=== PATIENT | female | born 1955 | race Caucasian/White ===

== ENCOUNTER 2017-03-26 08:00 | Inpatient (IN) | payer OTHER ==
[2017-03-11 13:16] VITALS: BMI 26.5
--- NOTE | 2017-03-26 07:49 | HP ---
Admitting History and Physical - Admission Chief Complaint: Right knee osteoarthritis x years History of Present Illness: 62 year old female presents in regard to her right knee. Longstanding history of right knee osteoarthritis. Patient complains of pain, limited ROM and difficulty ambulating. Patient has failed conservative treatment including PO medication, injections, activity modification and an exercise program. At this point patient would like to proceed with a right total knee arthroplasty. History Source: Patient - Past Medical History Pulmonary: Yes: Asthma ...: No Psych: Yes: Anxiety, Depression, Other (Insomnia) - Past Surgical History Additional Past Surgical History: See written history & physical - Smoking History Smoking history: Former smoker Have you smoked in the past 12 months: No If you are a former smoker, when did you quit?: - Alcohol/Substance Use Hx Alcohol Use: No Home Medications - Allergies Allergies/Adverse Reactions: Allergies Allergy/AdvReac Type Severity Reaction Status Date / Time acetaminophen [From Tylenol] Allergy Intermediate Itching Verified 03/11/17 13: 33 - Home Medications Home Medications: Ambulatory Orders Albuterol Sulfate [Proair Respiclick] 90 mcg IH DAILY PRN 03/11/17 Bupropion HCl [Wellbutrin Sr] 100 mg PO DAILY 03/11/17 Cholecalciferol (Vitamin D3) [Vitamin D3] 50,000 unit PO WEEKLY 03/11/17 Lorazepam [Ativan] 0.5 mg PO BID PRN 03/11/17 Paroxetine HCl [Paxil] 40 mg PO DAILY 03/11/17 Zolpidem Tartrate [Ambien] 10 mg PO HS 03/11/17 Review of Systems - Review of Systems Musculoskeletal: reports: Crepitus (Right knee), Decreased ROM (Right knee), Joint Pain (Right knee), Joint Swelling (Right knee) Physical Examination Constitutional: Yes: Well Nourished, No Distress Eyes: Yes: Conjunctiva Clear HENT: Yes: Atraumatic, Normocephalic Neck: Yes: Supple Cardiovascular: Yes: Regular Rate and Rhythm Respiratory: Yes: Regular Gastrointestinal: Yes: Soft ...Rectal Exam: Yes: Deferred Musculoskeletal: Yes: Joint Stiffness (Right knee), Joint Swelling (Right knee) Assessment/Plan 62 year old female presenting with right knee osteoarthritis. Patient is limited in ADLs and ambulation. Patient has failed conservative treatment. Proceed with a right total knee arthroplasty.
[2017-03-26] MEDS ORDERED: ROPIVACAINE HCL 0.5% 30ML VIAL ONE (09:46)
[2017-03-26] MEDS ORDERED: DEXAMETHASONE SOD PHOSPHATE/PF 10 MG/ML SDV ONE (09:46)
[2017-03-26] MEDS ORDERED: ROPIVACAINE 0.2% 400ML 400 ML ML NR ONE (10:00)
[2017-03-26] MEDS ORDERED: GABAPENTIN 300 MG CAPSULE (FP) ONE (10:07)
[2017-03-26] MEDS ORDERED: oxyCODONE HCL 10 MG SUSTAINED ACTING TABLET ONE (10:07)
[2017-03-26] MEDS ORDERED: CELECOXIB 200 MG CAPSULE ONE (10:08)
[2017-03-26] MEDS ORDERED: MIDAZOLAM HCL 2 MG/2 ML SINGLE DOSE VIAL ONE (10:48)
[2017-03-26] MEDS ORDERED: BUPIVACAINE HCL/PF 0.5% (5MG/ML) 10 ML VIAL ONE (11:19)
--- NOTE | 2017-03-26 11:29 | HP ---
Admitting History and Physical - Admission Chief Complaint: Right knee OA History Source: Patient, Medical Record Limitations to Obtaining History: No Limitations - Past Medical History Pulmonary: Yes: Asthma ...: No Psych: Yes: Anxiety, Depression, Other (Insomnia) - Past Surgical History Additional Past Surgical History: See written history & physical - Smoking History Smoking history: Former smoker Have you smoked in the past 12 months: No If you are a former smoker, when did you quit?: - Alcohol/Substance Use Hx Alcohol Use: No - Social History Usual Living Arrangement: Yes: With Spouse Home Medications - Allergies Allergies/Adverse Reactions: Allergies Allergy/AdvReac Type Severity Reaction Status Date / Time acetaminophen [From Tylenol] Allergy Intermediate Itching Verified 03/11/17 13: 33 - Home Medications Home Medications: Ambulatory Orders Albuterol Sulfate [Proair Respiclick] 90 mcg IH DAILY PRN 03/11/17 Bupropion HCl [Wellbutrin Sr] 100 mg PO DAILY 03/11/17 Cholecalciferol (Vitamin D3) [Vitamin D3] 50,000 unit PO WEEKLY 03/11/17 Lorazepam [Ativan] 0.5 mg PO BID PRN 03/11/17 Paroxetine HCl [Paxil] 40 mg PO DAILY 03/11/17 Zolpidem Tartrate [Ambien] 10 mg PO HS 03/11/17 Physical Examination Vital Signs: Vital Signs Temperature 97.8 F 03/26/17 09:51 Pulse Rate 85 03/26/17 09:51 Respiratory Rate 20 03/26/17 09:51 Blood Pressure 130/82 03/26/17 09:51 O2 Sat by Pulse Oximetry (%) Constitutional: Yes: Well Nourished, No Distress, Calm Eyes: Yes: WNL, Conjunctiva Clear, EOM Intact HENT: Yes: WNL, Atraumatic, Normocephalic Neck: Yes: WNL, Supple Cardiovascular: Yes: WNL, Regular Rate and Rhythm Respiratory: Yes: WNL, Regular Gastrointestinal: Yes: WNL, Soft ...Rectal Exam: Yes: Deferred Musculoskeletal: Yes: Joint Stiffness, Joint Swelling Extremities: Yes: WNL Edema: No Peripheral Pulses WNL: Yes Integumentary: Yes: WNL Neurological: Yes: WNL, Alert, Oriented ...Motor Strength: WNL Psychiatric: Yes: WNL, Alert, Oriented Labs: reviewed in chart Imaging - Results X-ray: Image Reviewed Problem List - Problems (1) Osteoarthritis of right knee Assessment/Plan: 62yo female with right knee OA for R TKA Code(s): M17.11 - UNILATERAL PRIMARY OSTEOARTHRITIS, RIGHT KNEE Qualifiers: Osteoarthritis type: primary Qualified Code(s): M17.11 - Unilateral primary osteoarthritis, right knee
[2017-03-26] MEDS ORDERED: ROPIVICAINE 0.2%/MORPH PF/KETOROLAC - 51ML DISP.SYRINGE IA ONE (11:52)
[2017-03-26] MEDS ORDERED: TRANEXAMIC ACID 1000 MG/10 ML VIAL IVPB ONE ×2 (12:12→13:44)
[2017-03-26] MEDS ORDERED: VANCOMYCIN 1,000 MG VIAL (RESTRICTED TO ID ONLY) IVPB ONE ×2 (12:12→13:44)
[2017-03-26] MEDS ORDERED: TRANEXAMIC ACID 1000 MG/10 ML VIAL ONE (13:42)
[2017-03-26] MEDS ORDERED: PROPOFOL 20 ML ONE (13:52)
--- NOTE | 2017-03-26 14:44 | OP ---
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
[2017-03-26] MEDS ORDERED: MAGNESIUM HYDROX 2400MG/30ML ORAL SUSPENSION 30 ML CUP PO PRN (14:47)
[2017-03-26] MEDS ORDERED: ONDANSETRON 4 MG/2 ML VIAL IVPB PRN (14:47)
[2017-03-26] MEDS ORDERED: MAG HYDROX/AL HYDROX/SIMETH 30 ML UNIT-DOSE CUP PO PRN (14:47)
[2017-03-26] MEDS ORDERED: oxyCODONE HCL 5 MG TABLET PO PRN (14:52)
[2017-03-26] MEDS ORDERED: PATIENT'S OWN MEDICATION (NON-FORMULARY) (Albuterol Sulfate [Proair Respiclick] 90 MCG) IH PRN (14:53)
[2017-03-26] MEDS ORDERED: PANTOPRAZOLE 40 MG TABLET (FP) PO ONE (14:59)
[2017-03-26] MEDS ORDERED: LACTATED RINGERS SOLUTION 1,000 ML IV SCH (15:00)
[2017-03-26] MEDS: ACETAMINOPHEN 1000 MG/100 ML VIAL (NON FORMULARY) IVPB ONE ×2 (15:00→19:54)
[2017-03-26] MEDS ORDERED: KETOROLAC TROMETHAMINE 30 MG/1 ML VIAL ONE (15:17)
[2017-03-26] MEDS ORDERED: traMADol HCL 50 MG TABLET ONE (15:17)
[2017-03-26] MEDS ORDERED: ACETAMINOPHEN INJECTION 100 ML IVPB ONE (15:18)
[2017-03-26] MEDS: traMADol HCL 50 MG TABLET PO SCH ×2 (15:25→21:56)
[2017-03-26] MEDS: KETOROLAC TROMETHAMINE 30 MG/1 ML VIAL IVPUSH SCH ×2 (15:30→21:51)
[2017-03-26] MEDS: oxyCODONE HCL 5 MG TABLET PO PRN (18:50)
[2017-03-26] MEDS: ACETAMINOPHEN 325 MG TABLET (FP) PO SCH ×2 (19:55→20:35)
[2017-03-26] MEDS: CEFAZOLIN 1 GM/D5W 50 ML IVPB SCH (20:35)
[2017-03-26] MEDS: oxyCODONE HCL 10 MG SUSTAINED ACTING TABLET PO SCH (21:55)
[2017-03-26] MEDS ORDERED: ZOLPIDEM TARTRATE 5 MG TABLET ONE (21:55)
[2017-03-26] MEDS: CELECOXIB 200 MG CAPSULE PO SCH (21:56)
[2017-03-26] MEDS: GABAPENTIN 300 MG CAPSULE (FP) PO SCH (21:56)
[2017-03-26] MEDS: SENNOSIDES/DOCUSATE COMBO (SENNA PLUS) TABLET (UD) PO SCH (21:56)
[2017-03-26] MEDS: ASCORBIC ACID 500 MG TABLET (FP) PO SCH (21:57)
[2017-03-27] MEDS: ACETAMINOPHEN 325 MG TABLET (FP) PO SCH ×4 (03:00→20:04)
[2017-03-27] MEDS: KETOROLAC TROMETHAMINE 30 MG/1 ML VIAL IVPUSH SCH ×2 (03:00→08:42)
[2017-03-27] MEDS: traMADol HCL 50 MG TABLET PO SCH ×4 (03:00→20:04)
[2017-03-27] MEDS: CEFAZOLIN 1 GM/D5W 50 ML IVPB SCH (04:00)
[2017-03-27] MEDS: oxyCODONE HCL 5 MG TABLET PO PRN ×2 (06:41→16:24)
[2017-03-27] MEDS: LORazepam 0.5 MG TABLET PO PRN ×2 (06:53→18:22)
[2017-03-27] MEDS: ASPIRIN 325 MG TABLET PO SCH (07:51)
[2017-03-27 08:39] LABS: MCH 29.7 pg (25.7-33.7); MCHC 32.3 g/dl (32.0-36.0); MEAN CELL VOLUME 92.1 fl (80-96); MEAN PLT VOLUME 9.2 fl (7.5-11.1); PLATELET COUNT 216 K/MM3 (134-434); RDW 14.6 % (11.6-15.6); WHITE BLOOD COUNT 10.8 K/mm3 (4.0-10.8)
[2017-03-27 09:07] LABS: ANION GAP 6 (8-16); CALCIUM 9.1 mg/dl (8.4-10.2); CO2 24 mmol/L (22-28); CREATININE 0.8 mg/dl (0.6-1.3); GLUCOSE,RANDOM 99 mg/dl (74-106)
--- NOTE | 2017-03-27 09:15 | PN ---
Progress Note (short form) - Note Progress Note: Anesthesiology Post-op S: Patient doing well POD #1 s/p Right total knee replacement. Pain is adequately controlled with PO medication and continuous adductor canal catheter. Patient is ambulating and participating in PT. O: Dressing for adductor canal catheter is C/D/I A/P: Continue current care. Encouraged incentive spirometer and active participation with PT.
[2017-03-27] MEDS: oxyCODONE HCL 10 MG SUSTAINED ACTING TABLET PO SCH ×2 (09:49→21:26)
[2017-03-27] MEDS: ASCORBIC ACID 500 MG TABLET (FP) PO SCH ×2 (09:50→21:27)
[2017-03-27] MEDS: MULTIVITAMINS (DAILY MVI) TABLET (FP) PO SCH (09:50)
[2017-03-27] MEDS: CELECOXIB 200 MG CAPSULE PO SCH ×2 (09:50→21:26)
[2017-03-27] MEDS: GABAPENTIN 300 MG CAPSULE (FP) PO SCH ×2 (09:50→21:27)
[2017-03-27] MEDS: SENNOSIDES/DOCUSATE COMBO (SENNA PLUS) TABLET (UD) PO SCH ×2 (09:50→21:27)
[2017-03-27] MEDS: PANTOPRAZOLE 40 MG TABLET (FP) PO SCH (09:50)
[2017-03-27] MEDS: PARoxetine HCL 20 MG TABLET (FP) PO SCH (09:52)
[2017-03-27] MEDS ORDERED: BUPROPION HCL 100 MG PO SCH (10:00)
--- NOTE | 2017-03-27 12:57 | SPEC ---
DATE OF OPERATION: PREOPERATIVE DIAGNOSIS: Right knee osteoarthritis. POSTOPERATIVE DIAGNOSIS: Right knee osteoarthritis. PROCEDURE: Right total knee replacement. ATTENDING: Everton Castaneda MD CESSPOOL CLEANER: REGAN Tristan PA ANESTHESIA: Spinal plus sedation. ESTIMATED BLOOD LOSS: 50 mL. COMPLICATIONS: None. DISPOSITION: The patient was transferred to the PACU in stable condition. IMPLANTS USED: Formoso Triathlon size 3 femoral component, size 2 tibial component, 13 mm total stabilized polyethylene component, 50-mm tibial stem, 32-mm patellar component. INDICATIONS: This is a 62-year-old female who presents to the office with right knee pain. She is a long-term patient of our practice and has been complaining of right knee symptoms since earlier than 2007. She was diagnosed with severe osteoarthritis and was treated nonoperatively for many years with injections, medications, and physical therapy, but the pain became overwhelming, and she had ambulatory dysfunction. She was indicated for a total knee replacement. The risks, benefits, and alternatives of the surgery were explained to the patient in great detail, and she elected to proceed with the surgery. DESCRIPTION OF PROCEDURE: On the day of surgery, the patient was taken to the operating room and placed on the OR table. Spinal anesthesia was administered by the anesthesiologist. The patient was then positioned supine on the table and all bony prominences were padded. A nonsterile tourniquet was placed on the proximal thigh. The knee was then prepped and draped in the usual sterile fashion and intravenous antibiotics were given for infection prophylaxis. A surgical time-out was then performed with the team, and the patients identity, procedure, side, availability of implants, and the administration of antibiotics was confirmed. The leg was then elevated and exsanguinated, and the tourniquet was inflated. With the knee flexed, a midline incision was made and carried down through the subcutaneous fat to the underlying retinaculum. A medial parapatellar arthrotomy was performed. This was followed by a subperiosteal dissection of the tissue off the proximal, medial tibia. A portion of fat pad was removed from under the patellar tendon, and a small portion of fat was excised off the distal supracondylar femur. The knee was then flexed further and the anterior horn of the lateral meniscus was released from the midline. Next, the anterior and posterior cruciate ligaments were transected. Osteophytes were removed from both the femur and tibia. Grade 4 changes were noted diffusely throughout the knee. Hohmann retractors were then placed around the distal femur. The starting drill was used to enter the intramedullary canal. The starting point had been chosen by checking the radiographs and anatomy. Proper alignment and intramedullary placement was then confirmed by placing the long narrow john into the femur. Next, the distal femoral cutting guide was adjusted to 6 degrees of valgus and pinned to the femur. The bone resection was assessed using an sloane-wing. An approximately 10mm distal cut was made and the cut pieces measured. Once this was complete, the sizing guide was used to determine which size femoral component should be used. Next, the appropriately sized 4-in-1 cutting block was then placed at the correct amount of external rotation and the sloane wing was used to assure that there would be no notching of the anterior cortex of the femur. Once this was done, Hohmann retractors were used to protect the medial and lateral collateral ligaments, and all appropriate bone cuts were made. Attention was then turned to the tibia. Hohmann retractors were used to translate the tibia anteriorly and protect the collateral ligaments. The medial and lateral menisci were removed. The extramedullary tibial alignment guide was then placed and adjusted for rotation, varus/valgus, and slope. The height of the cutting block was adjusted to the level of the desired bone resection and then pinned in place. The proximal tibia was then cut with a saw and the bone was removed and measured. Once this was completed, trial components were placed and the knee was taken through a full range of motion. Soft tissue balance was assessed in both flexion and extension and found to be appropriate. The knee was stable throughout the full range of motion. The knee was then put into extension and the patella everted. The synovium around the patella was circumscribed with electrocautery. A caliper was used to measure the patellar thickness and a saw was then used to resect the patella at the chondro-osseous junction. The cut surface was then sized and drilled for the appropriate patellar button, with care taken to medialize it. A trial patella was then placed and the knee was again taken through a full range of motion. The knee was found to have both good balance and good patellar tracking. All of the components were removed except the tibial base plate. The appropriate instrumentation was used to drill and punch the proximal tibia for the keel of the final component. All bony surfaces were then cleaned with pulsatile lavage and dried. Bone cement was then prepared on the back table, and final components were cemented in place in the usual fashion. Extruded cement was removed. The polyethylene trial was placed, the knee was put into extension, and axial pressure was applied for compression while the cement hardened. The patellar button was similarly cemented into place. Once the cement had hardened, the knee was taken through a full range of motion to assess stability, balance, and patellar tracking. This was found to be optimal and the trial polyethylene was exchanged for the appropriately sized real implant. After final implants were placed, the knee was irrigated with normal saline and then a 3-minute dilute Betadine lavage was performed, according to the [facility]IGHLAND protocol. Following this, the knee was again thoroughly thoroughly irrigated with normal saline with pulsatile lavage. After this, wound closure was begun. The wound was then thoroughly irrigated with normal saline. No. 1 Polysorb and 0 VLoc 180 barbed sutures were used to close the arthrotomy. No. 1 Polysorb and 2-0 Polysorb sutures were used in the subcutaneous tissues. The skin was closed using both 3-0 VLoc 90 suture in a running subcuticular fashion and SwiftSet skin adhesive. Once this was completed a sterile Aquacel dressing and compressive Ko-wrap was applied. The tourniquet was then deflated and the patient was awakened and taken to the PACU in stable condition. EVERTON CASTANEDA M.D. [id number]
--- NOTE | 2017-03-27 13:47 | PN ---
Progress Note (short form) - Note Progress Note: Pt seen and examined. Comfortable. No complaints. AVSS Selected Entries 03/27/17 03/27/17 06:19 08:40 Temperature 98.2 F Pulse Rate 85 Respiratory 18 Rate Blood Pressure 135/84 O2 Sat by Pulse 99 Oximetry (%) Laboratory Tests 03/27/17 03/27/17 07:37 07:37 WBC 10.8 RBC 3.57 L Hgb 10.6 L Plt Count 216 Sodium 140 Potassium 3.9 Chloride 110 H Carbon Dioxide 24 Anion Gap 6 L BUN 20 H Creatinine 0.8 Random Glucose 99 Calcium 9.1 Gen: NAD RLE: c/d/i, NVID A/P POD#1 s/p R TKA 1. PT/OOB 2. Plan for d/c home tomorrow Problem List - Problems (1) Osteoarthritis of right knee Code(s): M17.11 - UNILATERAL PRIMARY OSTEOARTHRITIS, RIGHT KNEE Qualifiers: Osteoarthritis type: primary Qualified Code(s): M17.11 - Unilateral primary osteoarthritis, right knee
[2017-03-27] MEDS ORDERED: ZOLPIDEM TARTRATE 5 MG TABLET PO PRN (21:22)
[2017-03-28] MEDS: oxyCODONE HCL 5 MG TABLET PO PRN ×4 (00:30→15:00)
[2017-03-28] MEDS: traMADol HCL 50 MG TABLET PO SCH ×3 (02:06→14:41)
[2017-03-28] MEDS: ACETAMINOPHEN 325 MG TABLET (FP) PO SCH ×3 (02:07→14:41)
[2017-03-28] MEDS: KETOROLAC TROMETHAMINE 30 MG/1 ML VIAL IVPB PRN ×2 (02:26→12:17)
[2017-03-28 06:23] VITALS: BP 147/81; PULSE 88; TEMP 98.6
[2017-03-28] MEDS: ASPIRIN 325 MG TABLET PO SCH (07:53)
[2017-03-28 08:30] LABS: ANION GAP 6 (8-16); CALCIUM 9.5 mg/dl (8.4-10.2); CO2 24 mmol/L (22-28); CREATININE 0.6 mg/dl (0.6-1.3); GLUCOSE,RANDOM 103 mg/dl (74-106); MEAN PLT VOLUME 9.5 fl (7.5-11.1); PLATELET COUNT 211 K/MM3 (134-434); RDW 13.9 % (11.6-15.6); WHITE BLOOD COUNT 10.6 K/mm3 (4.0-10.8)
[2017-03-28] MEDS: LORazepam 0.5 MG TABLET PO PRN (09:10)
[2017-03-28] MEDS: oxyCODONE HCL 10 MG SUSTAINED ACTING TABLET PO SCH (09:16)
[2017-03-28] MEDS: PARoxetine HCL 20 MG TABLET (FP) PO SCH (09:19)
[2017-03-28] MEDS: GABAPENTIN 300 MG CAPSULE (FP) PO SCH (09:19)
[2017-03-28] MEDS: CELECOXIB 200 MG CAPSULE PO SCH (09:19)
[2017-03-28] MEDS: SENNOSIDES/DOCUSATE COMBO (SENNA PLUS) TABLET (UD) PO SCH (09:19)
[2017-03-28] MEDS: ASCORBIC ACID 500 MG TABLET (FP) PO SCH (09:20)
[2017-03-28] MEDS: MULTIVITAMINS (DAILY MVI) TABLET (FP) PO SCH (09:20)
[2017-03-28] MEDS: PANTOPRAZOLE 40 MG TABLET (FP) PO SCH (09:20)
--- NOTE | 2017-03-28 14:12 | PN ---
Progress Note (short form) - Note Progress Note: Pt seen and examined. Comfortable. No complaints. AVSS Selected Entries 03/28/17 03/28/17 06:00 06:21 Temperature 98.6 F Pulse Rate 88 Respiratory 18 Rate Blood Pressure 147/81 O2 Sat by Pulse 97 Oximetry (%) Oxygen Delivery Room Air Method Laboratory Tests 03/28/17 03/28/17 07:22 07:22 WBC 10.6 Hgb 10.6 L Hct 32.0 L Plt Count 211 Sodium 139 Potassium 4.2 Chloride 109 H Carbon Dioxide 24 Anion Gap 6 L BUN 13 D Creatinine 0.6 D Random Glucose 103 Calcium 9.5 Gen: NAD RLE: c/d/i, NVID A/P POD#2 s/p R TKA 1. PT/OOB 2. D/C home today Problem List - Problems (1) Osteoarthritis of right knee Code(s): M17.11 - UNILATERAL PRIMARY OSTEOARTHRITIS, RIGHT KNEE Qualifiers: Osteoarthritis type: primary Qualified Code(s): M17.11 - Unilateral primary osteoarthritis, right knee
--- NOTE | 2017-03-28 14:13 | DS ---
Physical Examination Vital Signs: Vital Signs Temperature 98.6 F 03/28/17 06:00 Pulse Rate 88 03/28/17 06:00 Respiratory Rate 18 03/28/17 06:00 Blood Pressure 147/81 03/28/17 06:00 O2 Sat by Pulse Oximetry (%) 97 03/28/17 06:21 Labs: CBC, BMP 03/28/17 07:22 03/28/17 07:22 Discharge Summary Reason For Visit: RIGHT KNEE OSTEOARTHRITIS Current Active Problems Osteoarthritis of right knee (Acute) Procedures: Principal: right TKA Hospital Course: Admitted for elective surgery. Procedure performed without complications. Pt received postoperative antibiotic prophylaxis and DVT ppx. Ambulated with physical therapy. Stable for discharge home with outpatient followup. Condition: Stable - Instructions Diet, Activity, Other Instructions: Dr. Eastman - Knee Replacement Instructions Keep the Aquacel dressing on until removed by Dr. Eastman in 10-14 days - it is antibacterial and waterproof and you can shower with it on. Call the office for a follow-up appointment with Dr. Eastman in 10-14 days. Take one Aspirin 325mg daily for 6 weeks to prevent blood clots in your legs. Take one Pantoprazole 40mg daily for 6 weeks to protect against heartburn and ulcers. Take Celebrex 200mg twice daily for 30 days to reduce swelling and inflammation. Take a multivitamin, vitamin C supplement, and stool softener daily. For pain: *Mild pain (1-3/10): Take 1 Tramadol tablet every 4 hours as needed. Moderate pain (4-6/10): Take 1 Tramadol tablet and 1 Percocet tablet every 4 hours as needed. Severe pain (7-10/10): Take 1 Tramadol tablet and 2 Percocet tablets every 4 hours as needed. Activity: You can put as much weight on the operative leg as you want. Right after you get home, there will be a physical therapist coming to your house to help you walk around and bend/straighten your knee. After your follow-up appointment, you will be sent for more intensive outpatient physical therapy which will include machines and equipment that the home therapist cannot bring to your house. Always use a walker or cane for balance and to prevent falls. Disposition: VNS/HOME HEALTH CARE - Home Medications Comprehensive Discharge Medication List: Ambulatory Orders Albuterol Sulfate [Proair Respiclick] 90 mcg IH DAILY PRN 03/11/17 Bupropion HCl [Wellbutrin Sr] 100 mg PO DAILY 03/11/17 Cholecalciferol (Vitamin D3) [Vitamin D3] 50,000 unit PO WEEKLY 03/11/17 Lorazepam [Ativan] 0.5 mg PO BID PRN 03/11/17 Paroxetine HCl [Paxil] 40 mg PO DAILY 03/11/17 Zolpidem Tartrate [Ambien] 10 mg PO HS 03/11/17 Ascorbic Acid [Vitamin C -] 500 mg PO BID tablet 03/28/17 Aspirin [ASA -] 325 mg PO DAILY@0800 tablet 03/28/17 Celecoxib [CeleBREX -] 200 mg PO BID #60 tab 03/28/17 Multivitamins [Multivit (RH Formulary)] 1 tab PO DAILY tab 03/28/17 Oxycodone HCl/Acetaminophen [Percocet 5-325 mg Tablet] 1 - 2 tab PO Q4H PRN #60 tablet MDD 10 03/28/17 Pantoprazole Sodium [Protonix -] 40 mg PO DAILY #40 tab 03/28/17 Sennosides/Docusate Sodium [Pericolace -] 1 tablet PO BID tablet 03/28/17 Tramadol HCl [Ultram -] 50 mg PO Q4H #90 tablet MDD 6 03/28/17
--- NOTE | 2017-03-30 11:13 | PATH ---
Surgical Pathology Report Patient Name: PARAM ALVES Med. Rec. #: [id number] /Age/Gender: 1955 (Age: 62) / F Account: [id number] Location: [facility] MED-SURG Taken: 03/26/2017 Received: 03/26/2017 Reported: 03/30/2017 Physicians: Brandan Eastman M.D. Specimen(s) Received RIGHT KNEE BONES Clinical History Right knee osteoarthritis Final Diagnosis BONE AND SOFT TISSUE, RIGHT KNEE, REPLACEMENT: DEGENERATIVE JOINT DISEASE. Electronically Signed Cornelio Patton M.D. Gross Description Received in formalin labeled "right knee bones," is a 13.5 x 13.0 x 2.0 cm aggregate of multiple guzman, irregular portions of bone and soft tissue. The tibial plateau measures 7.7 x 5.7 x 2.0 cm. There is a 3.8 cm in greatest dimension area of eburnation present. Remaining articular surfaces are guzman-yellow and diffusely nodular and granular. The underlying trabecular bone is yellow and hard. Security Supervisor sections are submitted in one cassette, following decalcification. 03/27/201703/27/2017
--- NOTE | 2017-03-30 14:16 | SURG ---
Surgery Valuation Manager Note Valuation Manager: Brianna Boogie PA-C Date of Service: 03/30/17 Diagnosis: right knee OA Procedure: right TKA I was present for the second half of the operation. For further detail, please refer to operative report. Visit type - Case Type Case Type: Scheduled Admission - Emergency Emergency Visit: No - New patient This patient is new to me today: Yes Date on this admission: 03/26/17 - Critical Care Critical Care patient: No
== END 2017-03-28 15:42 | disposition home health service (06) | DRG 470 ==
LOC: FM/S 09:30
PROVIDERS: ADMIT Student in an Organized Health Care Education/Training Program; ATTEND Student in an Organized Health Care Education/Training Program
PROC: 0SRC0J9 Replacement of Right Knee Joint with Synthetic Substitute, Cemented, Open Approach (ICD-10-PCS; principal; 2017-03-26 12:00)
DX: M17.11 Unilateral primary osteoarthritis, right knee (principal); J45.909 Unspecified asthma, uncomplicated; F32.9 Major depressive disorder, single episode, unspecified; F41.9 Anxiety disorder, unspecified; G47.00 Insomnia, unspecified; Z87.891 Personal history of nicotine dependence
CPT/HCPCS: 36415; 73560-TC-RT; 80048; 85027; 88305-TC; 88311-TC; 94760; 97116-GP; 97162-PG